=== PATIENT | male | born 1980 | race Caucasian/White ===

== ENCOUNTER 2018-07-25 18:08 | Emergency (ER) | payer BC ==
[2018-07-25 18:28] VITALS: BP 143/90
--- NOTE | 2018-07-25 18:48 | UC ---
UC General HPI - HPI Summary HPI Summary: pt is c/o a congested cough and green sputum x 1 month. + fever at onset but none now. admits to some GRECO and wheezing. no chest pain. hx childhood asthma. - History of Current Complaint Chief Complaint: UCRespiratory Stated Complaint: UPPER RESPITORY Time Seen by Provider: 07/25/18 18:30 Hx Obtained From: Patient Onset/Duration: Gradual Onset Timing: Constant Pain Intensity: 0 Associated Signs & Symptoms: Negative: Diarrhea, Vomiting - Allergy/Home Medications Allergies/Adverse Reactions: Allergies Allergy/AdvReac Type Severity Reaction Status Date / Time No Known Allergies Allergy Verified 07/25/18 18:29 Home Medications: Home Medications Energy Drink 1 dose PO SEE INSTRUCTIONS 07/25/18 [History Confirmed 07/25/18] Ibuprofen TAB* [Motrin TAB* 600 MG] 600 mg PO ONCE PRN 07/25/18 [History Confirmed 07/25/18] PMH/Surg Hx/FS Hx/Imm Hx Respiratory History: Asthma - as child - Surgical History Surgical History: Yes Surgery Procedure, Year, and Place: inquinal hernia as infant - Family History Known Family History: Positive: Non-Contributory - Social History Occupation: Employed Full-time Alcohol Use: Weekly Alcohol Amount: 8 Substance Use Type: Excessive Caffeine Substance Use Comment - Amount & Last Used: pre-work out energy drink 07/23/18 Smoking Status (MU): Former Smoker Review of Systems All Other Systems Reviewed And Are Negative: Yes Constitutional: Negative: Fever Respiratory: Positive: Shortness Of Breath, Cough Cardiovascular: Negative: Palpitations, Chest Pain Physical Exam Triage Information Reviewed: Yes Appearance: Well-Appearing Vital Signs: Initial Vital Signs Temp 97.7 F 07/25/18 18:21 Pulse 85 07/25/18 18:21 Resp 18 07/25/18 18:21 BP 143/90 07/25/18 18:21 Pulse Ox 95 07/25/18 18:21 Vital Signs Reviewed: Yes Eyes: Positive: Conjunctiva Clear ENT: Positive: Pharynx normal. Negative: Nasal congestion, Nasal drainage Neck: Positive: Supple, Nontender, No Lymphadenopathy Respiratory: Positive: No respiratory distress, Decreased breath sounds, Other: - occasional rhonchi and wheeze that cleared with a congested cough. Cardiovascular: Positive: RRR, No Murmur Abdomen Description: Positive: Nontender Bowel Sounds: Positive: Present Musculoskeletal: Positive: ROM Intact Neurological: Positive: Alert Psychological: Positive: Age Appropriate Behavior Skin Exam: Normal Course/Dx - Course Course Of Treatment: CXR advised given duration of illness; however, pt declined. Need for close f/u and recheck stressed. BP elevated here. Pt denies hx HTN, BP illness/visit related. - Diagnoses Provider Diagnosis: Cough in adult, Bronchospasm Discharge - Sign-Out/Discharge Documenting (check all that apply): Patient Departure All imaging exams completed and their final reports reviewed: No Studies - Discharge Plan Condition: Stable Disposition: HOME Prescriptions: Albuterol HFA INHALER* [Ventolin HFA Inhaler*] 2 puff INH Q6H #1 mdi Azithromycin TAB* [Zithromax TAB (Z-ONEYDA) 250 mg #6 tabs] 2 tab PO .TODAY, THEN 1 DAILY #1 oneyda predniSONE [Prednisone 20 MG TAB] 40 mg PO DAILY 5 Days #10 tablet Patient Education Materials: Bronchospasm (ED), Acute Cough (ED) Referrals: Luis Alberto Manzanares MD [Primary Care Provider] - 5 Days - Billing Disposition and Condition Condition: STABLE Disposition: Home
== END 2018-07-25 19:02 | disposition home or self-care (01) ==
LOC: UCCORT 18:08
DX: R05 Cough (principal); J98.01 Acute bronchospasm; Z87.891 Personal history of nicotine dependence
CPT/HCPCS: 99202; G0463

== ENCOUNTER 2018-08-27 13:35 | Emergency (ER) | payer BC ==
[2018-08-27 13:59] VITALS: BP 140/58
[2018-08-27] MEDS ORDERED: Acetaminophen TAB* 325 MG PO ONE (14:13)
[2018-08-27 14:37] LABS: Influenza A Molecular NEGATIVE (Negative); Influenza B Molecular NEGATIVE (Negative)
--- NOTE | 2018-08-27 14:40 | UC ---
HPI Febrile Illness - HPI Summary HPI Summary: Pt presents with c/o sudden onset of fever, chills body aches X [address], ear pain, urinary symptoms, abdominal pain nausea or vomiting. Pt does report that he had Cordelia in July and still continues to have slight cough. Denies recent or past tick bite. - History of Current Complaint Chief Complaint: UCGeneralIllness Time Seen by Provider: 08/27/18 14:07 Hx Obtained From: Patient Onset/Duration: Started Days Ago - 3 Timing: Constant Initial Severity: Moderate Current Severity: Moderate Pain Intensity: 6 Aggravating Factors: Nothing Alleviating Factors: OTC Medicine Associated Signs and Symptoms: Chills, Cough, Myalgia, Night Sweats - Risk Factors Pseudomonas Risk Factors: Negative Serious Bacterial Infection Risk Factors: Negative - Additional Pertinent History Current Antibiotics: No - Allergy/Home Medications Allergies/Adverse Reactions: Allergies Allergy/AdvReac Type Severity Reaction Status Date / Time No Known Allergies Allergy Verified 08/27/18 13:59 Home Medications: Home Medications Albuterol HFA INHALER* [Ventolin HFA Inhaler*] 2 puff INH Q6H PRN 08/27/18 [ History Confirmed 08/27/18] PMH/Surg Hx/FS Hx/Imm Hx Previously Healthy: Yes - Surgical History Surgical History: Yes Surgery Procedure, Year, and Place: inquinal hernia as infant - Family History Known Family History: Positive: Cardiac Disease, Non-Contributory - Social History Occupation: Employed Full-time Lives: With Family Alcohol Use: Weekly Alcohol Amount: 8 Substance Use Type: Excessive Caffeine Substance Use Comment - Amount & Last Used: pre-work out energy drink 07/23/18 Smoking Status (MU): Former Smoker Have You Smoked in the Last Year: No When Did the Patient Quit Smoking/Using Tobacco: 2002 - Immunization History Vaccination Up to Date: Yes Review of Systems All Other Systems Reviewed And Are Negative: Yes Constitutional: Positive: Fever, Chills, Fatigue Skin: Positive: Negative Eyes: Positive: Negative ENT: Positive: Negative Respiratory: Positive: Cough - occasional Cardiovascular: Positive: Negative Gastrointestinal: Positive: Negative Genitourinary: Positive: Negative Motor: Positive: Negative Neurovascular: Positive: Negative Musculoskeletal: Positive: Myalgia Neurological: Positive: Headache Psychological: Positive: Negative Is Patient Immunocompromised?: No Physical Exam Triage Information Reviewed: Yes Appearance: Ill-Appearing Vital Signs: Initial Vital Signs Temp 101.3 F 08/27/18 13:53 Pulse 118 08/27/18 13:53 Resp 18 08/27/18 13:53 BP 140/58 08/27/18 13:53 Pulse Ox 95 08/27/18 13:53 Vital Signs Reviewed: Yes Eye Exam: Normal ENT Exam: Normal Dental Exam: Normal Neck exam: Normal Respiratory Exam: Normal Cardiovascular Exam: Normal Musculoskeletal Exam: Normal Neurological Exam: Normal Psychological Exam: Normal Skin Exam: Normal Course/Dx - Febrile Illness Differential Diagnoses: Meningitis, Pneumonia - Diagnoses Provider Diagnosis: Fever Discharge - Sign-Out/Discharge Documenting (check all that apply): Patient Departure All imaging exams completed and their final reports reviewed: Yes - Discharge Plan Condition: Stable Disposition: HOME Patient Education Materials: Fever in Adults (ED), Safe Use of NSAIDs (ED) Forms: *Work Release Referrals: Luis Alberto Manzanares MD [Primary Care Provider] - If Needed Additional Instructions: Please follow up with your PCP as needed. - Billing Disposition and Condition Condition: STABLE Disposition: Home - Attestation Statements Provider Attestation: I was available for consult. This patient was seen by the JULISSA. The patient was not presented to, seen by, or examined by me. -Osito
== END 2018-08-27 15:15 | disposition home or self-care (01) ==
LOC: UCCORT 13:35
DX: R50.9 Fever, unspecified (principal); R05 Cough; M79.10 Myalgia, unspecified site; Z87.891 Personal history of nicotine dependence
CPT/HCPCS: 71046; 99211; A9270-GY; G0463